=== PATIENT | male | born 1950 | race Caucasian/White ===

== ENCOUNTER 2022-06-13 10:11 | Emergency (ER) | payer MEDICARE ==
[2022-06-13] MEDS ORDERED: Sodium Chloride 0.9% 10 ML Syringe FLUSH PRN (10:33)
[2022-06-13 11:19] LABS: ANION GAP 11.3 mEq/L (7-13); CHLORIDE,CL 100 mmol/L (98-107); SODIUM,NA 135 mmol/L (136-145)
[2022-06-13 11:22] LABS: ESTIMATED GFR 91 mL/min (>=60)
[2022-06-13] MEDS ORDERED: Iopamidol 755 Mg/ML 100 ML Bottle IVPUSH ONE (11:30)
[2022-06-13 11:32] LABS: CORONAVIRUS COVID-19 NAA NEGATIVE (NEGATIVE); RESPIRATORY SYNCYTIAL VIR NAA NEGATIVE (NEGATIVE)
[2022-06-13] MEDS ORDERED: Sodium Chloride 0.9% 1,000 ML IV ONE (11:32)
[2022-06-13] MEDS ORDERED: Azithromycin 250 MG Tab PO ONE (12:35)
[2022-06-13] MEDS ORDERED: cefTRIAXone 1 GM Vial IVPUSH ONE (12:35)
== END 2022-06-13 12:57 | disposition home or self-care (01) ==
LOC: DL.ED 10:11
DX: J18.9 Pneumonia, unspecified organism (principal); J43.2 Centrilobular emphysema; J98.59 Other diseases of mediastinum, not elsewhere classified; R59.0 Localized enlarged lymph nodes; F17.210 Nicotine dependence, cigarettes, uncomplicated; Z88.8 Allergy status to other drugs, medicaments and biological substances; Z79.899 Other long term (current) drug therapy; Z20.822 Contact with and (suspected) exposure to COVID-19
CPT/HCPCS: 0241U; 36415; 71260; 80053; 83605; 84145; 85025; 85379; 85610; 85730; 87040; 87070; 87205; 96361; 96374; 99284; A9270; J0696; J3490; J7030; Q9967

== ENCOUNTER → 2023-06-23 | Emergency (ER) | payer OTHER | LOC: DL.ED 12:08 | DX: Z53.21 Procedure and treatment not carried out due to patient leaving prior to being seen by health care provider (principal) ==